=== PATIENT | female | born 1945 | race Caucasian/White ===

== ENCOUNTER 2017-02-03 16:40 | Emergency (ER) | payer OTHER, MEDICARE ==
--- NOTE | 2017-02-03 17:19 | DIAGNOSTIC IMAGING REPORT ---
PROCEDURE: CT HEAD WITHOUT CONTRAST INDICATION: STROKE TECHNIQUE: Axial CT images were acquired through the head. Coronal and sagittal reformations were created. COMPARISON: None. FINDINGS: There is hypodensity in the periventricular and subcortical white matter. This is especially prominent in the left temporal region which could represent early infarction. No intracranial hemorrhage or extraaxial fluid collections. Ventricles are normal in size, shape and position. There is no mass, mass effect or midline shift. The calvarium is intact. The paranasal sinuses and mastoid air cells are normally aerated. The extracranial soft tissues and orbits are normal. IMPRESSION: 1. White matter edema in the left temporal lobe which could represent early infarction. 2. Age related involutional and white matter changes. 3. Findings discussed with Dr. Montanez at 05:[address] scans at this facility use dose modulation, iterative reconstruction, and/or weight-based dosing when appropriate to reduce radiation dose to as low as reasonably achievable.
--- NOTE | 2017-02-03 18:38 | ED CLINICAL REPORT ---
Clinical Report - Physicians/Mid Levels [facility] [address] [place] [address] 02/03/2017 16:39 Patient: JOSHUA COMBS Time Seen: 16:42; initial patient contact. Arrived- By ambulance. Historian- EMS personnel. History limited by confusion. Physical Exam limited by confusion. HISTORY OF PRESENT ILLNESS Chief Complaint: IMPAIRED SPEECH. No weakness or recent fall. She has had difficulty with speech. This started just prior to arrival about 1 1/2 hours ago, patient was witnessed to be last known well (at 1500) and is still present (persistent). It was abrupt in onset. At its maximum deficit described as severe. When seen in the E.D., described as severe. The patient has had altered mental status. No seizure or blackouts. Usually is alert and oriented X3 and has normal mobility. Similar symptoms previously: None. Recent medical care: Not recently seen/assessed. REVIEW OF SYSTEMS Unobtainable due to patient's altered mental status. All systems otherwise negative, except as recorded above. PAST HISTORY ( HTN. Asthma). SOCIAL HISTORY Former smoker. Regular alcohol use. No drug use. ADDITIONAL NOTES The nursing notes have been reviewed. PHYSICAL EXAM Vital Signs: 02/03/2017 16:51 BP: 162/74. 02/03/2017 16:42 HR: 97. O2 saturation: 97%. Temp: 97.9 F. Have been reviewed. Hypertensive. Heart rate normal. Respiratory rate normal. Temperature normal. Oxygen saturation normal. Appearance: Alert. No acute distress. Head: Head atraumatic. Eyes: Pupils equal, round and reactive to light. ENT: Airway intact. Pharynx normal. Neck: Normal inspection. Neck supple. No carotid bruit. CVS: Normal heart rate and rhythm. Heart sounds normal. Respiratory: No respiratory distress. Breath sounds normal. Abdomen: Soft and nontender. Skin: Skin warm and dry. Normal skin color. No rash. Extremities: No lower extremity edema. Neuro: Alert. Expressive aphasia. NIH Stroke Scale: score 2. Level of Consciousness: alert (0). Aphasia: severe (2). LABS, X-RAYS, AND EKG EKG: EKG time: (1709). No acute process. No acute ischemia. Normal EKG. Normal sinus rhythm. Rate: 76. Normal P waves. Normal HERMILA. Normal QRS complex. Normal axis. Normal ST and T waves, QT and QTc. Prior EKG unavailable. The study has been interpreted contemporaneously by me. The study has been independently viewed by me. The EKG appears to be a good tracing. Interpretation time: 1709. CT Head: (1. White matter edema in the left temporal lobe which could represent early infarction. 2. Age related involutional and white matter changes.). Head CT performed without contrast. Prior studies were not available for comparison. The study was interpreted by the radiologist and discussed with the radiologist. Interpretation time: 17:24. Laboratory Tests: UA-Culture if indicated: (DAMARIS: 02/03/2017 16:58) ( MsgRcvd 02/03/2017 17:22) Final results Test Result Flag Units (Reference) URINE COLOR YELLOW URINE APPEARANCE CLEAR URINE GLUCOSE NEGATIVE (NEGATIVE) URINE BILIRUBIN NEGATIVE (NEGATIVE) URINE KETONE NEGATIVE (NEGATIVE) URINE SPECIFIC GRAVITY 1.010 (1.010-1.030) URINE PH 8.5 H (5.0-8.0) URINE PROTEIN TRACE (NEGATIVE) URINE UROBILINOGEN 0.2 EU/dL (0.2-1.0) URINE NITRITE NEGATIVE (NEGATIVE) URINE BLOOD NEGATIVE (NEGATIVE) URINE LEUK ESTERASE TRACE (NEGATIVE) URINE RBC 0-1 rbc/hpf (0-1) URINE CATHTRANSITIONAL EPITHELIAL CELLS 0-1/HPF URINE WBC 1-3 wbc/hpf (0-1) URINE EPITHELIAL CELLS NONE SEEN EPI/hpf (0-5) URINE BACTERIA TRACE (<1+) (NONE SEEN) URINE COMMENT CULTURE INDICATED URINE CULTURES ARE SET-UP BASED ON THE FOLLOWING CRITERIA:POSITIVE NITRITEPOSITIVE LEUKOCYTE ESTERASEGREATER THAN 10 WHITE BLOOD CELLSMODERATE (2+) OR GREATER BACTERIA CBC w Diff: (DAMARIS: 02/03/2017 16:50) ( MsgRcvd 02/03/2017 17:17) Final results Test Result Flag Units (Reference) WHITE BLOOD COUNT 5.8 K/uL (4.5-11.5) RED BLOOD COUNT 3.61 L M/uL (4.00-5.20) HEMOGLOBIN 12.0 gm/dL (12.0-16.0) HEMATOCRIT 35.9 L % (36.0-46.0) MEAN CELL VOLUME 100 fL (80-100) MEAN CORPUSCULAR HGB 33 pg (26-34) MEAN CORPUSCULAR HGB CONC 33 g/dL (31-37) RED CELL DISTRIBUTION WIDTH 13.2 % (11.6-14.8) PLATELET COUNT 176 K/uL (150-400) NEUTROPHIL % 68.8 % (50-75) LYMPH % 15.9 L % (25-40) MONO % 10.7 % (3-14) EOSINOPHIL % 4.0 % (0-4) BASOPHIL % 0.6 % (0-2) PT with INR: (DAMARIS: 02/03/2017 16:50) ( MsgRcvd 02/03/2017 17:16) Final results Test Result Flag Units (Reference) INR 0.9 (0.8-1.2) Low Intensity Therapy: INR 1.5-2.0 PT range 18.5-23.1Mod.Intensity Therapy: INR 2.0-3.0 PT range 23.1-31.5High Intensity Therapy: INR 2.5-3.5 PT range 27.4-35.5High Intensity Therapy 2: INR 3.0-4.0 PT range 31.5-39.3 APTT 30 SECONDS (24-34) FIBRINOGEN 315 mg/dL (193-455) D-DIMER QUANTITATIVE 0.96 H ug/mLFEU (0.27-0.52) The primary value of this quantitative assay relates toits negative predictive value (i.e. exclusion) of pulmonaryembolism/deep vein thrombosis/DIC.Elevated levels of d-dimer may also occur with:, age, cancer, inflammation, liver disease,post-op, infection, hematoma, coronary disease, peripheralarteriopathy, bleeding disorders and thrombolytic treatment.Results should be correlated with other clinical andradiological data.Testing Methodology: Latex Immunoassay Urine Drug Screen: (DAMARIS: 02/03/2017 16:58) ( MsgRcvd 02/03/2017 17:37) Final results Test Result Flag Units (Reference) AMPHETAMINE/METHAMPHETAMINE NEGATIVE (NEGATIVE) BARBITURATE NEGATIVE (NEGATIVE) BENZODIAZEPINE NEGATIVE (NEGATIVE) CANNABINOID NEGATIVE (NEGATIVE) COCAINE NEGATIVE (NEGATIVE) ECSTASY NEGATIVE (NEGATIVE) METHADONE NEGATIVE (NEGATIVE) OPIATE POSITIVE H (NEGATIVE) The urine drug screen is a qualitative screening test fordrug overdose and abuse. All screen results should beconsidered as presumptive.Drugs screened for are as follows:BenzodiazepinesCocaineAmphetamines/MetamphetaminesTHC (Tetrahydrocannabinol)OpiatesBarbituratesEcstasyMethadonePositive results are unconfirmed. For confirmation, notifythe lab for the specimen to be sent to the reference lab.All confirmations must be performed by a differentmethodology.The ingestion of natural herbal and plant productscontaining Ephedra/Ephedra metabolites can produce in urineone or more substances capable of cross reacting withamphetamine/methamphetamine immunoassays. These testsprovide a preliminary result only. A more specificalternative chemical method must be used to obtain aconfirmed analytical result. CMP: (DAMARIS: 02/03/2017 16:50) ( MsgRcvd 02/03/2017 17:20) Final results Test Result Flag Units (Reference) GLUCOSE 103 mg/dL (70-110) BUN 29 H mg/dL (7-18) CREATININE 1.6 H mg/dL (0.6-1.3) Estimated GFR 33.58 mL/min Estimated GFR- 40.70 mL/min Note: Persistent reduction over 3 months in eGFR<60 mL/min/1.73 m2 defines CKD. Patients with eGFR values>=60 mL/min/1.73 m2 may also have CKD if evidence ofpersistent proteinuria. Additional information may be foundat www.kidney.org. SODIUM 141 mmol/L (136-145) POTASSIUM 3.9 mmol/L (3.5-5.1) CHLORIDE 101 mmol/L (98-107) CARBON DIOXIDE 33 H mmol/L (21-32) CALCIUM 9.3 mg/dL (8.5-10.1) TOTAL PROTEIN 7.3 g/dL (6.4-8.2) ALBUMIN 4.0 g/dL (3.3-5.0) BILIRUBIN, TOTAL 0.5 mg/dL (0.0-1.0) ALKALINE PHOSPHATASE 81 U/L (46-116) AST (SGOT) 35 U/L (15-37) ALT (SGPT) 27 U/L (12-78) . PROGRESS AND PROCEDURES Course of Care: 19:16 02/03/17. Pt developed a severe H/A and agitation after TPA, was placed on hold. Also she has developed a R sided facial droop, contacted Dr. Morrison, he recommended holding TPA and stat repeat head CT. 19:40 02/03/17. Pt vomiting in CT and condition is worsening, will defer CT and fly her out immediately. Calling [facility] to make aware. 1740. Long discussion with Pt's about the risks v/s benefits of TPA. Pt meets criteria and was recommended by Dr. Morrison to give and agreed. Critical care performed (120 minutes). Time includes: direct patient care, patient reassessment, coordination of patient care, interpretation of data (laboratory data and pulse oximetry), review of patient's medical records, medical consultation, family consultation regarding treatment decisions and documentation of patient care. The patient required critical care due to the acute impairment of vital organ systems (cardiovascular and central nervous system) and a high probability of life threatening deterioration. Numerous emergent interventions were required to prevent life threatening deterioration. Discussed case with on-call health care provider, (Tamiko stroke specialist at [facility], Recommended TPA and CTA of head/neck. Will accept pt.). Reviewed test results and need for additional work-up. Disposition: Benefits, risks and alternatives to transfer explained to patient and family. Transferred to [facility]. Condition: critical. CLINICAL IMPRESSION Nontraumatic cerebrovascular accident- ischemic infarct. Patient arrived in the emergency department less than 2 hours since time last known well. (Electronically signed by Josesito Montanez Dr. 02/03/2017 21:25)
--- NOTE | 2017-02-03 18:38 | ED ORDER SUMMARY ---
..... Patient: JOSHUA COMBS OrderSheet [facility] VisitID: [id number] [place] [address] 71y, F Registration Date/Time: 02/03/2017 ORDER SHEET Weight: 71 kg (measured) Allergies: No Known Drug Allergy GENERAL ORDERS: CT Head wo Cont Urgent (16:41 02/03/2017 Malcolm verbal order read back to Stefani Orozco) (Ack 16:44 Malcolm) (16:49 MCampbell) Stroke Panel Stat (16:43 02/03/2017 Stefani Orozco) (Ack 16:44 Malcolm) (16:56 MCook R.N.) UA-Culture if indicated Urgent (16:43 02/03/2017 Stefani Orozco) (Ack 16:44 Malcolm) (17:08 MCook R.N.) Urine Drug Screen Urgent (16:43 02/03/2017 Stefani Orozco) (Ack 16:44 Malcolm) (17:08 MCook R.N.) EKG - ER Stat (17:09 02/03/2017 LNations ER Tech1 per protocol) (17:11 MCook R.N.) CTA Head and Neck (No) (29/1.6) Urgent (17:37 02/03/2017 Stefani Orozco) (Ack 17:41 Malcolm) (18:10 MCook R.N.) CT Head wo Cont Urgent (19:15 02/03/2017 Stefani Orozco) (Ack 19:21 LNations ER Tech1) MEDICATION ORDERS: Nicardipine IV Drip : Bolus None, then 5 mg/hr (NOW, Rrestricted to Code Stroke patients transferring to [facility], To be mixed as infusion) (Titrate to SBP <185 and > 160) (18:34 02/03/2017 Stefani Orozco) (Ack 18:45 JBoardley R.N.) (18:55 MCook R.N.) IV FLUIDS: IV Saline Lock (16:43 02/03/2017 Stefani Orozco) (16:52 MCook R.N.) TPA Protocol (Stroke) 0.9 mg/kg (HIGH ALERT MEDICATION, NOW, Stroke 0.9 mg/kg, Bolus-10% of total dose given over 1min, Infusion-remaining 90% of total dose given over 59) (18:58 02/03/2017 Stefani Orozco) (19:09 Minnie Alcantar) Morphine IV 4 mg (NOW) (19:11 02/03/2017 Minnie Alcantar verbal order read back to Stefani Orozco) (19:14 Minnie Alcantar) ORDER SHEET NOTES: [Electronically signed by Fernandez Veliz R.N. (20:06 02/03/2017)] [Electronically signed by Josesito Montanez Dr. (21:25 02/03/2017)] [Electronically locked/signed by Fernandez Veliz R.N. (20:06 02/03/2017)]
--- NOTE | 2017-02-03 18:38 | ED NURSING NOTES ---
Clinical Report - Nurses [facility] [address] [place] [address] 02/03/2017 16:39 Patient: JOSHUA COMBS TRIAGE Triage time 16:42 Feb 03 2017. Chief Complaint: IMPAIRED SPEECH. --16:43 Fernandez Veliz R.N. 16:42 02/03/17. HR: 97. O2 saturation: 97% on room air. Temp: 97.9 F. --16:43 Fernandez Veliz R.N. SEPSIS SCREEN: Sepsis Screen. Negative (no infection suspected/documented). --16:49 Fernandez Veliz R.N. 16:51 02/03/17. BP: 162/74. --16:51 Fernandez Veliz R.N. Acuity: LEVEL 2. --16:52 Fernandez Veliz R.N. 16:44 02/03/17. BP: 162/74. HR: 97. RR: 14. O2 saturation: 97%. Temp: 97.9 F. FLACC pain scale: 0/10. --20:05 Fernandez Veliz R.N. Weight: 71 kg measured. Height/Length: 66 inches Estimated. BMI: 25.3. --16:41 Fernandez Veliz R.N. Medications Atenolol 50 mg QD. --17:02 Fernandez Veliz R.N. Triamterene-HCTZ Oral. --17:03 Fernnadez Veliz R.N. Vitamin D. --17:07 Fernandez Veliz R.N. Allergies No Known Drug Allergy. --17:03 Fernandez Veliz R.N. History Arrived by EMS. Historian: (EMS). This started just prior to arrival and today. Patient was last known well (90 minutes ago). She has had altered mental status and difficulty with speech. Treatment WIND DEVELOPMENT DIRECTOR: None. --16:43 Fernandez Veliz R.N. PAST MEDICAL HX: Unknown. Immunizations: status is unknown. --16:49 Fernandez Veliz R.N. SOCIAL HX: Former smoker. Regular alcohol use. No drug use. No infectious disease exposure. NUTRITIONAL RISK ASSESSMENT: The nutritional risk assessment revealed no deficiencies. FUNCTIONAL ASSESSMENT: Functional assessment: no impairments noted. FALL RISK ASSESSMENT: Fall risk assessment completed. Risk factors identified include patient impairment of cognition. Fall interventions initiated. Patient placed on stretcher. Side rails up x2. Bed in low position. Patient visible from nurses' station. Family at bedside. Call light in reach of patient. Instructed not to get up without assistance. LEARNING NEEDS ASSESSMENT: A learning needs assessment was performed. Factors affecting the patient's ability to learn include communication / language barriers and cognitive limitations. SKIN INTEGRITY ASSESSMENT: Skin integrity risk assessment completed. No skin integrity risk identified. --17:06 Fernandez Veliz R.N. Primary physician (Dr. Kriss Davis). --17:07 Fernandez Veliz R.N. SURGERY HX: Cholecystectomy. --17:07 Fernandez Veliz R.N. PROBLEMS: HTN. --17:03 Fernandez Veliz R.N. Asthma. --17:04 Fernandez Veliz R.N. The following entry was modified by Fernandez Veliz R.N., 17:03 Reason - other <<STRICKEN ENTRY-- Triamterene/hctz 37.5/25 mg QD. --17:02 Fernandez Veliz R.N. --END STRIKE>> The following entry was modified by Fernandez Veliz R.N., 17:03 Reason - other <<STRICKEN ENTRY-- Atenolol 50 mg QD. --17:01 Fernandez Veliz R.N. --END STRIKE>>. ADDITIONAL SURGERIES: no known surgeries. Interventions ID band on patient. To room. --16:52 Fernandez Veliz R.N. PHYSICAL ASSESSMENT To room via stretcher. Baseline functional status: usually alert and confused. Verbal response: usually inaccurate. GENERAL / NEURO / PSYCH: Awake. The patient is disoriented. Abnormal verbal response. Expressive aphasia. Mood/affect normal. HEENT: Pupils equal, round and reactive to light. RESPIRATORY: Respirations not labored. SKIN: Skin is intact, warm and dry. --16:45 Fernandez Veliz R.N. GENERAL / NEURO / PSYCH: Andre Coma Scale: 12- eyes open spontaneously (4); best verbal response- inappropriate speech (3); best motor response- localizes to pain (5). --17:17 Fernandez Veliz R.N. GENERAL / NEURO / PSYCH: NIH Stroke Scale: score 11. Performed at 17:46. Level of Consciousness: alert (0). LOC Questions: neither (2). LOC Commands: one (1). Best gaze: normal (0). Visual field loss: partial hemianopsia (1). Facial palsy: minor (1). Motor arm: no drift right arm (0) and no drift left arm (0). Motor leg: no drift left leg (0) and drift right leg (1). Limb ataxia: none (0). Sensory loss: none (0). Aphasia: mild to moderate (1). Dysarthria: severe (2). Extinction and inattention: abnormal multiple modalities (2). --17:46 Fernandez Veliz R.N. GENERAL / NEURO / PSYCH: Awake. Appears in distress. Altered mental status. Abnormal verbal response. Mood/affect abnormal. HEENT: Right-sided facial weakness. RESPIRATORY: Respirations not labored. CVS: Cardiac rhythm: sinus tachycardia. SKIN: Skin is intact, warm and dry. --19:06 Fernandez Veliz R.N. NURSING PROGRESS NOTES ( Pt brought in via EMS, alert but unable to follow commands, replies "yes" to 's questions and commands. Obtained VS and Pt was transported to CT.). --16:44 Fernandez Veliz R.N. Patient transported to CT by stretcher with tech. (16:41 Feb 03 2017). --16:45 Fernandez Veliz R.N. 16:52 02/03/2017 Site #1 started via IV in the left antecubital space with an 20g angiocath, with aseptic technique and good blood return; one attempt. Blood drawn: rainbow set. Labeled in the presence of the patient and sent to the lab. Saline lock flushed with 10 mL saline. --16:52 Fernandez Veliz R.N. ( Pt returned to room, alert but answers questions inappropriately, VSS, IVIP, monitoring in place.). --16:53 Fernandez Veliz R.N. Patient ID band checked for patient name and birthdate: patient confirmed urine collected with return of yellow-colored urine; sample sent to lab for urinalysis and drug screen. Specimen labeled in the presence of the patient. --17:01 Fernandez Veliz R.N. 17:11 02/03/17. BP: 148/66. HR: 75. RR: 13. O2 saturation: 98% on room air. FLACC pain scale: 0/10. --17:11 Fernandez Veliz R.N. ( MD at bedside completing FAST exam.). --17:12 Fernandez Veliz R.N. ( Pt is difficulty to assess, does not follow commands or answer questions appropriately, can form coherent sentences but they are inappropriate for the situation. Pt's spouse is at bedside, states that Pt is not exhibiting her baseline status at this time.). --17:22 Fernandez Veliz R.N. EKG time: (1705). EKG was performed by a nurse and shown to the ED physician. --17:28 Fernandez Veliz R.N. 17:30 02/03/17. BP: 189/90. HR: 77. O2 saturation: 94% on room air. --17:30 Fernandez Veliz R.N. 17:37 02/03/17. BP: 193/72. HR: 78. O2 saturation: 97% on room air. --17:39 Fernandez Veliz R.N. Patient transported to CT by stretcher with tech. ( Preparing Pt for TPA.). --17:46 Fernandez Veliz R.N. 17:54 02/03/17. BP: 188/92. HR: 96. O2 saturation: 97% on room air. --18:09 Fernandez Veliz R.N. 18:09 02/03/2017 Site #2 started via IV in the right antecubital space with an 20g angiocath, with aseptic technique and good blood return; one attempt. Saline lock flushed with 10 mL saline. --18:09 Fernandez Veliz R.N. 18:09 02/03/17. BP: 184/93. --18:10 Fernandez Veliz R.N. ( Pt back in from post CT-A. Spouse at bedside, Pt's s/s remain the same. No distress noted.). --18:12 Fernandez Veliz R.N. 18:11 02/03/17. BP: 176/86. --18:12 Fernandez Veliz R.N. ( t-PA started at 1821. Administered bolus per Pharm dosing and instructions. Infusion running now. VSS, Pt is stable, monitoring from bedside. VS checked q15 minutes.). --18:26 Fernandez Veliz R.N. 18:20 02/03/17. BP: 169/81. HR: 94. RR: 14. O2 saturation: 94% on room air. Temp: 98 F. FLACC pain scale: 0/10. --18:28 Fernandez Veliz R.N. 18:40 02/03/17. BP: 191/82. HR: 86. RR: 13. O2 saturation: 100% on room air. FLACC pain scale: 0/10. --18:41 Fernandez Veliz R.N. 18:50 02/03/17. BP: 202/125. HR: 111. RR: 23. O2 saturation: 9%. FLACC pain scale: 10/10. --18:54 Fernandez Veliz R.N. 18:55 02/03/2017 Started 5 mg of Nicardipine Drip IV in bag #1 250 mL; at 5 mg/hr via site #2 via IV pump. Allergies verified and confirmed 5 rights. IV patency established. IV site checked: no pain, redness, or swelling. IV flushed thoroughly pre- and post-medication administration. Completed per protocol. --18:55 Fernandez Veliz R.N. 18:57 02/03/17. BP: 204/89. HR: 105. RR: 13. FLACC pain scale: 3/10. --18:57 Fernandez Veliz R.N. ( Pt had a sudden onset of LEYVA, very intense in nature, causing the Pt to writhe. 4 of morphine given IV, Pt responded well. VSS elevated, Pt is tachycardic, HTNsive. Started Nicardipine gtt. Monitoring VSS at bedside.). --18:58 Fernandez Veliz R.N. 18:58. ( t-PA infusion stopped at this time d/t Pt's sudden onset of intense LEYVA. MD at bedside.). --19:04 Fernandez Veliz R.N. 18:21 02/03/2017 Started 58 mg of TPA Protocol (Stroke) IVPB in bag #1 58 mL; bolus of 6 mg over 1 minute(s) then at 58 mL/hr over 1 hour(s) via site #1 via IV pump. Allergies verified and confirmed 5 rights. IV patency established. IV site checked: no pain, redness, or swelling. IV flushed thoroughly pre- and post-medication administration. Completed per protocol. --19:09 Fernandez Veliz R.N. 18:57 02/03/2017 Nicardipine Drip IV via IV site #2 Rate Changed: bag #1 increased to 10 mg/hr via IV pump. IV patency established. IV site checked: no pain, redness, or swelling. IV flushed thoroughly. Confirmed 5 Rights. --19:07 Fernandez Veliz R.N. 19:07 02/03/17. BP: 143/90. HR: 112. RR: 15. O2 saturation: 93% on room air. FLACC pain scale: 0/10. --19:07 Fernandez Vleiz R.N. 18:57 02/03/2017 TPA Protocol (Stroke) IVPB via IV site #1 Rate Changed: bag #1 decreased to 0 mL/hr via IV pump (d/t Pt's sudden onset of LEYVA. MD at bedside to give order.). --19:10 Fernandez Veliz R.N. 18:58 02/03/2017 Morphine IVP 4 mg given. via site #2. Allergies verified, confirmed 5 rights and sedative warning given to the patient and patient's family. IV patency established. IV site checked: no pain, redness, or swelling. IV flushed thoroughly pre- and post-medication administration. IVP given by RN. --19:14 Fernandez Veliz R.N. 19:07 02/03/2017 Nicardipine Drip IV via IV site #2 Rate Changed: bag #1 decreased to 7.5 mg/hr via IV pump. IV patency established. IV site checked: no pain, redness, or swelling. IV flushed thoroughly. Confirmed 5 Rights. --19:07 Fernandez Veliz R.N. 19:10 02/03/2017 TPA Protocol (Stroke) IVPB via IV site #1 Rate Changed: bag #1 increased to 58 mL/hr via IV pump. IV patency established. IV site checked: no pain, redness, or swelling. IV flushed thoroughly. Confirmed 5 Rights. --19:11 Fernandez Veliz R.N. 19:14 02/03/2017 TPA Protocol (Stroke) IVPB Discontinued: bag #1. Total amount infused: 36.5 mL. IV patency established. IV site checked: no pain, redness, or swelling. IV flushed thoroughly. --19:14 Fernandez Veliz R.N. <<STRICKEN ENTRY-- ( New onset of R-sided facial droop. Pt is more calm. Monitoring at bedside. Titrating Nicard gtt. BP stable.). --19:15 Fernandez Veliz R.N. --END STRIKE>> Correction --19:15 Fernandez Veliz R.N. 19:00 late entry -. ( R-sided facial droop noted. Titrating Nicard gtt per BP, VSS at this time, spouse at bedside.). --19:16 Fernandez Veliz R.N. 19:16 02/03/17. BP: 148/74. HR: 129. RR: 15. --19:17 Fernandez Veliz R.N. 19:17 02/03/2017 Nicardipine Drip IV via IV site #2 Rate Changed: bag #1 decreased to 5 mg/hr via IV pump. IV patency established. IV site checked: no pain, redness, or swelling. IV flushed thoroughly. Confirmed 5 Rights. --19:17 Fernandez Veliz R.N. Patient transported to CT by stretcher with nurse and tech. --19:18 Fernandez Veliz R.N. ( Pt transported to CT on monitor, accompanied Pt there. Transferred Pt to CT table and when Pt was layed flat she started vomiting. Pt sat up at 90 degrees and she continued to vomit. [employer] arrived and they administered 8 mg of Zofran IV, linens changed and Pt changed to their equipment. Nicard gtt DC'd at this point by [facility]. Report given to ADOLFO Rubio. Pt transported out of ED in the care of [facility] transport team.). --19:45 Fernandez Veliz R.N. 19:21 02/03/2017 Morphine IVP Response: symptoms have improved. --19:46 Fernandez Veliz R.N. 19:45 02/03/2017 Nicardipine Drip IV Discontinued: bag #1 upon transfer. Total amount infused: 5 mL. IV patency established. IV site checked: no pain, redness, or swelling. IV flushed thoroughly. --19:46 Fernandez Veliz R.N. ( CT not completed d/t Pt's change in condition in CT. [employer] aware.). --19:47 Fernandez Veliz R.N. 19:46 02/03/2017 Site #[address] upon transfer; patent. --19:55 Fernandez Veliz R.N. 19:47 02/03/2017 Site #[address] upon transfer; patent. --19:55 Fernandez Veliz R.N. NIH STROKE SCALE: Pt is tolerating POC well. Alert, pleasant, still confused, inappropriate responses. Monitoring VS q15 minutes. In/out catheter in place to help Pt drain her bladder seeing as she is not allowed out of bed post tPA admin. WCTM. --18:34 Fernandez Veliz R.N. Score 9. Level of Consciousness: alert (0). LOC Questions: neither (2). LOC Commands: neither (2). Best gaze: partial gaze palsy (1). Visual field loss: none (0). Facial palsy: normal (0). Motor arm: no drift right arm (0) and no drift left arm (0). Motor leg: no drift left leg (0) and drift right leg (1). Limb ataxia: none (0). Sensory loss: none (0). Aphasia: severe (2). Dysarthria: mild to moderate (1). Extinction and inattention: none (0). --18:45 Fernandez Veliz R.N. Pt is c/o LEYVA, unable to verbalize so but states that "there's pain" and is clutching her hand to her head. --18:45 Fernandez Veliz R.N. DISPOSITION / DISCHARGE Departure time: 19:47 Feb 03 2017. Condition at departure: deteriorated. Transferred to [facility]. Summary of care provided to transport team via paper. Report was given to a nurse in person. Report included patient's care, treatment, medications, reviewed medication reconcilliation, and condition (including any recent changes or anticipated changes). All questions were answered. Report was acknowledged and care was transferred. (to ADOLFO Rubio on [employer] team). ( Pt transported with [facility] to [facility] Patient's personal items include: shirt, pants, undergarments, shoes, upper denture, jewelry and purse; items were placed in belongings bag and given to the spouse. --19:52 Fernandez Veliz R.N. Locked/Released at 02/03/2017 20:06 by Fernandez Veliz R.N.
--- NOTE | 2017-02-03 18:38 | ED ORDER SUMMARY ---
..... Patient: JOSHUA COMBS OrderSheet [facility] VisitID: [id number] [place] [address] 71y, F Registration Date/Time: 02/03/2017 ORDER SHEET Weight: 71 kg (measured) Allergies: No Known Drug Allergy GENERAL ORDERS: CT Head wo Cont Urgent (16:41 02/03/2017 Malcolm verbal order read back to Stefani Orozco) (Ack 16:44 Malcolm) (16:49 MCampbell) Stroke Panel Stat (16:43 02/03/2017 Stefani Orozco) (Ack 16:44 Malcolm) (16:56 MCook R.N.) UA-Culture if indicated Urgent (16:43 02/03/2017 Stefani Orozco) (Ack 16:44 Malcolm) (17:08 MCook R.N.) Urine Drug Screen Urgent (16:43 02/03/2017 Stefani Orozco) (Ack 16:44 Malcolm) (17:08 MCook R.N.) EKG - ER Stat (17:09 02/03/2017 LNations ER Tech1 per protocol) (17:11 MCook R.N.) CTA Head and Neck (No) (29/1.6) Urgent (17:37 02/03/2017 Stefani Orozco) (Ack 17:41 Malcolm) (18:10 MCook R.N.) CT Head wo Cont Urgent (19:15 02/03/2017 Stefani Orozco) (Ack 19:21 LNations ER Tech1) MEDICATION ORDERS: Nicardipine IV Drip : Bolus None, then 5 mg/hr (NOW, Rrestricted to Code Stroke patients transferring to [facility], To be mixed as infusion) (Titrate to SBP <185 and > 160) (18:34 02/03/2017 Stefani Orozco) (Ack 18:45 JBoardley R.N.) (18:55 MCook R.N.) IV FLUIDS: IV Saline Lock (16:43 02/03/2017 Stefani Orozco) (16:52 MCook R.N.) TPA Protocol (Stroke) 0.9 mg/kg (HIGH ALERT MEDICATION, NOW, Stroke 0.9 mg/kg, Bolus-10% of total dose given over 1min, Infusion-remaining 90% of total dose given over 59) (18:58 02/03/2017 Stefani Orozco) (19:09 Minnie Alcantar) Morphine IV 4 mg (NOW) (19:11 02/03/2017 Minnie Alcantar verbal order read back to Stefani Orozco) (19:14 Minnie Alcantar) ORDER SHEET NOTES: [Electronically signed by Fernandez Veliz R.N. (20:06 02/03/2017)] [Electronically signed by Josesito Montanez Dr. (21:25 02/03/2017)] [Electronically locked/signed by Fernandez Veliz R.N. (20:06 02/03/2017)]
--- NOTE | 2017-02-03 18:51 | DIAGNOSTIC IMAGING REPORT ---
PROCEDURE: CTA HEAD AND NECK INDICATION: CVA. TPA. Assess for vascular occlusion TECHNIQUE: 88 ml of Isovue 370 injected intravenously and axial images were obtained from the vertex through the upper mediastinum with 3D sagittal and coronal MIP reconstructions. (BUN 29, creatinine 1.6). COMPARISON: Comparison is made to noncontrast CT earlier today FINDINGS: AORTIC ARCH: Mild calcified atheromatous changes of the arch. Origins and great vessels are normal. RIGHT CAROTID SYSTEM: Right common, internal, external carotid arteries are normal. LEFT CAROTID SYSTEM: Left common carotid artery is normal. There is mild calcified atheromatous plaque of the left carotid bifurcation. The rest of the left internal and external carotid arteries are normal. VERTEBROBASILAR SYSTEM: Left vertebral artery is dominant with a 30% stenosis at its origin. The rest the left vertebral artery is normal. Right vertebral artery is normal. Basilar artery is normal INTRACRANIAL ANTERIOR CIRCULATION: There are mild calcified atheromatous changes of the cavernous internal carotid arteries. Anterior cerebral and middle cerebral arteries are normal. INTRACRANIAL POSTERIOR CIRCULATION: Basilar artery, cerebellar arteries, and posterior cerebral arteries are normal. IMPRESSION: 1. Mild calcified atheromatous changes of the aortic arch and left carotid bifurcation. 2. There is a 30% stenosis at the origin of the left vertebral artery. 3. Otherwise normal extracranial carotid and vertebral vessels. 4. Normal intracranial circulation. No evidence of vascular occlusion, stenosis, or aneurysm. 5. Findings discussed with Dr. Josesito Montanez All CT scans at this facility use dose modulation, iterative reconstruction, and/or weight-based dosing when appropriate to reduce radiation dose to as low as reasonably achievable.
--- NOTE | 2017-02-03 21:25 | ED MAR SUMMARY ---
..... Medication Administration Record [facility] [address] [place] [address] Patient: JOSHUA COMBS Visit ID: [id number] 71y, F Weight: 71.0 kg Height/Length: 66 in BMI: 25.3 ALLERGIES: No Known Drug Allergy Start 18:21 02/03/2017 Fernandez Veliz R.N., Stop 19:14 02/03/2017 Fernandez Veliz R.N. Medication Administered: TPA PROTOCOL (STROKE), Dose: 58 mg IVPB over 1 hour(s), Rate: 58 mL/hr, Bolus: 6 mg over 1 minute(s), Dispensed: 58 mL bag, Site: #1 left AC. Medication Ordered: TPA Protocol (Stroke) 0.9 mg/kg (HIGH ALERT MEDICATION, NOW, Stroke 0.9 mg/kg, Bolus-10% of total dose given over 1min, Infusion-remaining 90% of total dose given over 59). Start 18:55 02/03/2017 Fernandez Veliz R.N., Stop 19:45 02/03/2017 Fernandez Veliz R.N. Medication Administered: NICARDIPINE [IV DRIP], Dose: 5 mg Drip IV, Rate: 5 mg/hr, Dispensed: 250 mL bag, Site: #2 right AC. Medication Ordered: Nicardipine IV Drip : Bolus None, then 5 mg/hr (NOW, Rrestricted to Code Stroke patients transferring to [facility], To be mixed as infusion) (Titrate to SBP <185 and > 160). Given 18:58 02/03/2017 Fernandez Veliz R.N. Medication Administered: MORPHINE [IVP], Dose: 4 mg IVP, Site: #2 right AC. Medication Ordered: Morphine IV 4 mg (NOW).
--- NOTE | 2017-02-03 21:25 | ED DISCHARGE INSTRUCTIONS ---
Patient: JOSHUA COMBS General Instructions [facility] VisitID: [id number] [address] [place] [address] 71y, F Registration Date/Time: 02/03/2017 Nontraumatic cerebrovascular accident- ischemic infarct. Patient arrived in the emergency department less than 2 hours since time last known well. (Electronically signed by Josesito Montanez Dr. 02/03/2017 21:25)
--- NOTE | 2017-02-03 21:25 | ED DISCHARGE INSTRUCTIONS ---
Patient: JOSHUA COMBS General Instructions [facility] VisitID: [id number] [address] [place] [address] 71y, F Registration Date/Time: 02/03/2017 Nontraumatic cerebrovascular accident- ischemic infarct. Patient arrived in the emergency department less than 2 hours since time last known well. (Electronically signed by Josesito Montanez Dr. 02/03/2017 21:25)
--- NOTE | 2017-02-03 21:25 | ED MAR SUMMARY ---
..... Medication Administration Record [facility] [address] [place] [address] Patient: JOSHUA COMBS Visit ID: [id number] 71y, F Weight: 71.0 kg Height/Length: 66 in BMI: 25.3 ALLERGIES: No Known Drug Allergy Start 18:21 02/03/2017 Fernandez Veliz R.N., Stop 19:14 02/03/2017 Fernandez Veliz R.N. Medication Administered: TPA PROTOCOL (STROKE), Dose: 58 mg IVPB over 1 hour(s), Rate: 58 mL/hr, Bolus: 6 mg over 1 minute(s), Dispensed: 58 mL bag, Site: #1 left AC. Medication Ordered: TPA Protocol (Stroke) 0.9 mg/kg (HIGH ALERT MEDICATION, NOW, Stroke 0.9 mg/kg, Bolus-10% of total dose given over 1min, Infusion-remaining 90% of total dose given over 59). Start 18:55 02/03/2017 Fernandez Veliz R.N., Stop 19:45 02/03/2017 Fernandez Veliz R.N. Medication Administered: NICARDIPINE [IV DRIP], Dose: 5 mg Drip IV, Rate: 5 mg/hr, Dispensed: 250 mL bag, Site: #2 right AC. Medication Ordered: Nicardipine IV Drip : Bolus None, then 5 mg/hr (NOW, Rrestricted to Code Stroke patients transferring to [facility] To be mixed as infusion) (Titrate to SBP <185 and > 160). Given 18:58 02/03/2017 Fernandez Veliz R.N. Medication Administered: MORPHINE [IVP], Dose: 4 mg IVP, Site: #2 right AC. Medication Ordered: Morphine IV 4 mg (NOW).
--- NOTE | 2017-02-03 21:25 | ED MED RECONCILIATION SUMMARY ---
Patient: JOSHUA COMBS Medication Reconciliation Report [facility] VisitID: [id number] [address] [place] [address] 71y, F Registration Date/Time: 02/03/2017 Weight: 71 kg Height/Length: 66 in. BMI: 25.3 ALLERGIES: No Known Drug Allergy The patient's Home Medications are listed below: THE FOLLOWING MEDICATIONS NEED TO BE RECONCILED: Atenolol 50 mg QD Triamterene-HCTZ Oral Vitamin D The source(s) of the original Home Medication information: Not obtained. The following Medications were given to the patient in the Emergency Department: Nicardipine [IV Drip] Drip IV bolus 0, then 5 mg 5 mg/hr, administered: 02/03/2017 6:55:00 PM TPA Protocol (Stroke) IVPB bolus 6 mg over 1 minute(s), then 58 mg 58 mL/hr, administered: 02/03/2017 6:21:00 PM Morphine [IVP] IVP 4 mg, administered: 02/03/2017 6:58:00 PM The following Medications were prescribed to the patient: None.
--- NOTE | 2017-02-03 21:25 | ED MED RECONCILIATION SUMMARY ---
Patient: JOSHUA COMBS Medication Reconciliation Report [facility] VisitID: [id number] [address] [place] [address] 71y, F Registration Date/Time: 02/03/2017 Weight: 71 kg Height/Length: 66 in. BMI: 25.3 ALLERGIES: No Known Drug Allergy The patient's Home Medications are listed below: THE FOLLOWING MEDICATIONS NEED TO BE RECONCILED: Atenolol 50 mg QD Triamterene-HCTZ Oral Vitamin D The source(s) of the original Home Medication information: Not obtained. The following Medications were given to the patient in the Emergency Department: Nicardipine [IV Drip] Drip IV bolus 0, then 5 mg 5 mg/hr, administered: 02/03/2017 6:55:00 PM TPA Protocol (Stroke) IVPB bolus 6 mg over 1 minute(s), then 58 mg 58 mL/hr, administered: 02/03/2017 6:21:00 PM Morphine [IVP] IVP 4 mg, administered: 02/03/2017 6:58:00 PM The following Medications were prescribed to the patient: None.
== END 2017-02-03 19:46 | disposition short-term general hospital (02) ==
LOC: ED SRH 16:40
DX: I61.9 Nontraumatic intracerebral hemorrhage, unspecified (principal); I69.192 Facial weakness following nontraumatic intracerebral hemorrhage; I10 Essential (primary) hypertension; Z87.891 Personal history of nicotine dependence